=== PATIENT | female | born 1955 | race Caucasian/White ===

== ENCOUNTER → 2017-08-05 | Outpatient (CLI) | payer OTHER ==
[~2017-08-05] MED LIST: ATOR-22 PO; LEVO100T PO; LISI-725 PO; METO25TA3 PO; OXYC1TAB3 PO; PRED-301 PO; PRED20TA PO; PRLSR20 PO
[2017-08-05 15:52] LABS: TOTAL IRON BINDING CAPACITY 360 mcg/dl (250-450)
[2017-08-11 18:58] LABS: ANTI-CENTROMERE AB <1.0 NEG AI (<1.0 NEG); ANTI-SS-A <1.0 NEG AI (<1.0 NEG); ANTI-SS-B <1.0 NEG AI (<1.0 NEG); DNA ds CRITHIDIA NEGATIVE (NEGATIVE); Sm Antibody <1.0 NEG AI (<1.0 NEG)
== END | disposition home or self-care (01) ==
LOC: C.LAB1850 14:18
PROVIDERS: ATTEND Internal Medicine Rheumatology
DX: M05.9 Rheumatoid arthritis with rheumatoid factor, unspecified (principal); M25.531 Pain in right wrist; M06.4 Inflammatory polyarthropathy

== ENCOUNTER → 2017-09-15 | Outpatient (CLI) | payer OTHER ==
[2017-09-15 18:14] LABS: BASO % 0.3 %; BASO ABS # 0.04 K/uL (0-0.2); EOS % 0.7 %; HEMATOCRIT 40.9 % (37-47); HEMOGLOBIN 13.3 g/dL (12.0-16.0); IG# 0.05 K/uL (0.00-0.02); LYMPH % 11.3 %; LYMPH ABS # 1.66 K/uL (1.2-3.4); MEAN CELL VOLUME 91.9 fL (80-100); MEAN CORPUSCULAR HEMOGLOBIN 29.9 pg (25-34); MEAN CORPUSCULAR HGB CONC 32.5 g/dl (32-36); MEAN PLATELET VOLUME 10.5 fL (7.4-10.4); MONO % 3.8 %; MONO ABS # 0.55 K/uL (0.11-0.59); NEUT % 83.6 %; NEUT ABS # 12.24 K/uL (1.4-6.5); PLATELET COUNT 387 K/uL (130-400); RED CELL DISTRIBUTION WIDTH CV 16.6 % (11.5-14.5); RED CELL DISTRIBUTION WIDTH SD 55.8 fL (36.4-46.3); WHITE BLOOD COUNT 14.64 K/uL (4.8-10.8)
[2017-09-15 18:36] LABS: ALBUMIN 3.7 gm/dl (3.4-5.0); ALT/SGPT 29 U/L (12-78); AST/SGOT 13 U/L (15-37); CREATININE 0.84 mg/dl (0.60-1.20)
[2017-09-15 18:38] LABS: ALKALINE PHOSPHATASE 73 U/L (45-117); TOTAL PROTEIN 7.7 gm/dl (6.4-8.2)
== END | disposition home or self-care (01) ==
LOC: C.LABPBG 11:12
PROVIDERS: ATTEND Internal Medicine Rheumatology
DX: M05.9 Rheumatoid arthritis with rheumatoid factor, unspecified (principal); Z79.52 Long term (current) use of systemic steroids; Z79.899 Other long term (current) drug therapy

== ENCOUNTER → 2017-11-28 | Outpatient (CLI) | payer OTHER ==
[2017-11-28 16:56] LABS: BASO % 0.3 %; BASO ABS # 0.03 K/uL (0-0.2); EOS % 0.5 %; EOS ABS # 0.06 K/uL (0-0.5); HEMATOCRIT 37.2 % (37-47); HEMOGLOBIN 12.1 g/dL (12.0-16.0); IG# 0.07 K/uL (0.00-0.02); LYMPH % 12.5 %; LYMPH ABS # 1.37 K/uL (1.2-3.4); MEAN CELL VOLUME 91.2 fL (80-100); MEAN CORPUSCULAR HEMOGLOBIN 29.7 pg (25-34); MEAN CORPUSCULAR HGB CONC 32.5 g/dl (32-36); MEAN PLATELET VOLUME 10.4 fL (7.4-10.4); MONO % 2.6 %; MONO ABS # 0.29 K/uL (0.11-0.59); NEUT % 83.5 %; NEUT ABS # 9.15 K/uL (1.4-6.5); PLATELET COUNT 353 K/uL (130-400); RED CELL DISTRIBUTION WIDTH CV 16.1 % (11.5-14.5); RED CELL DISTRIBUTION WIDTH SD 53.4 fL (36.4-46.3); WHITE BLOOD COUNT 10.97 K/uL (4.8-10.8)
[2017-11-28 17:17] LABS: ALBUMIN 3.7 gm/dl (3.4-5.0); ALT/SGPT 24 U/L (12-78); AST/SGOT 12 U/L (15-37); CREATININE 0.87 mg/dl (0.60-1.20)
[2017-11-28 17:20] LABS: ALKALINE PHOSPHATASE 83 U/L (45-117); TOTAL PROTEIN 7.7 gm/dl (6.4-8.2)
== END | disposition home or self-care (01) ==
LOC: C.LABPBG 13:38
PROVIDERS: ATTEND Internal Medicine Rheumatology
DX: Z51.81 Encounter for therapeutic drug level monitoring (principal); M05.00 Felty's syndrome, unspecified site; Z79.899 Other long term (current) drug therapy; Z79.52 Long term (current) use of systemic steroids